=== PATIENT | male | born 1965 | race Caucasian/White ===

== ENCOUNTER 2024-02-12 16:57 | Emergency (ER) | payer MEDICAID ==
--- NOTE | 2024-02-12 17:35 | ERPHSYRPT ---
- History of Present Illness Source: patient, EMS Exam Limitations: clinical condition Patient Subjective Stated Complaint: Pt states "I do not feel well at all." Triage Nursing Assessment: Pt presented alert and oriented X 3, skin pwd. Pt able to speak in clear full sentences. Pt curled up into a position pt able to has nasal canula on with 3 lpm supplimental O2. Fever Severity: moderate Associated Symptoms: abdominal pain, confusion, muscle aches, weakness Hx Tetanus, Diphtheria Vaccination/Date Given: No (unknown) Hx Influenza Vaccination/Date Given: Yes Hx Pneumococcal Vaccination/Date Given: No Immunizations Up to Date: No <ROSHAN LUCIANO - Last Filed: 02/12/24 19:24> <JOSE MASTERS - Last Filed: 02/13/24 05:58> - History of Present Illness Time Seen by Provider: 02/12/24 17:00 Physician History: This is a 58-year-old white male patient who was brought into the emergency department today by the paramedics because of patient stating at approximately 1 to 2 PM he just was not feeling well. Paramedics arrived to the patient's home and took an axillary temperature of 100 F. Patient arrives confused with our measured temperature of 103 F. He has a history of cancer but he could not tell me the primary source. In review of the patient's past medical history listed in the patient's medical record the cancers include bone cancer, liver cancer, bladder cancer, kidney cancer. He also has a history of hypertension, COPD and a stroke in the past. The paramedics provided the patient with Solu- Medrol intravenously and a DuoNeb nebulizer treatment. Patient had a fever, was tachycardic but normotensive when he arrived to the emergency department. He was placed on 3 L oxygen via nasal cannula and the oxygen saturation level is 99%. Patient underwent spinal surgery on 01/15/2024 secondary to spinal abscess. (ROSHAN LUCIANO) Allergies/Adverse Reactions: No Known Drug Allergies Allergy (Unverified 04/02/12 10:18) Home Medications: Albuterol 8 gm Mdi Hfa [Ventolin Hfa MDI] 18 gm IH BID 02/12/24 [History] Apixaban [Eliquis] 5 mg PO BID 02/12/24 [History] Gabapentin 600 mg PO TID 02/12/24 [History] Hydrocodone/Acetaminophen [[place] 10-325 mg] 1 tablet PO QID 02/12/24 [History] Melatonin 9 mg PO HS 02/12/24 [History] Midodrine HCl 5 mg PO TID 02/12/24 [History] Symbicort 1 puff IH BID 02/12/24 [History] Tizanidine HCl 2 mg PO QID 02/12/24 [History] Travel Risk - International Travel Have you traveled outside of the country in past 3 weeks: No - Emerging Infectious Disease Are you exhibiting symptoms associated with any current EIDs: Yes Symptoms: Abdominal Pain, Fever, Headaches/Body Aches/, Joint Pain <ROSHAN LUCIANO - Last Filed: 02/12/24 19:24> - Review of Systems Constitutional: Fever, Weakness Eyes: No Symptoms Ears, Nose, & Throat: No Symptoms Respiratory: No Symptoms Cardiac: No Symptoms Abdominal/Gastrointestinal: Abdominal Pain Genitourinary Symptoms: No Symptoms Musculoskeletal: Arthralgias, Myalgias Skin: No Symptoms Neurological: Other Psychological: No Symptoms (Fusion) Endocrine: No Symptoms Hematologic/Lymphatic: No Symptoms Immunological/Allergic: No Symptoms All Other Systems: Reviewed and Negative <ROSHAN LUCIANO - Last Filed: 02/12/24 19:24> - Past Medical History Pertinent Past Medical History: Yes Neurological History: Stroke ENT History: No Pertinent History Cardiac History: Hypertension Respiratory History: COPD, Emphysema, Lung Cancer Endocrine Medical History: Other Musculoskeletal History: Bone Cancer GI Medical History: Diverticulitis, Liver Cancer History: Bladder Cancer, Kidney Cancer Psycho-Social History: Anxiety Male Reproductive Disorders: No Pertinent History - Past Surgical History Past Surgical History: Yes Other Surgical History: spinal surgery 01/15/2024 Significant Family History: no pertinent family hx - Social History Smoking Status: Current every day smoker How long have you smoked: 30 Exposure to second hand smoke: Yes Alcohol Use: Socially Drug Use: marijuana Patient Lives Alone: No - Social Determinants of Health Will the patient participate in the screening: Declined to provide <ROSHAN LUCIANO - Last Filed: 02/12/24 19:24> - Physical Exam General Appearance: moderate distress, anxiety (Infuse), thin, other Eye Exam: PERRL/EOMI, eyes nml inspection ENT Exam: hearing grossly normal (There is some drainage from the left ear.), airway intact Neck Exam: normal inspection, non-tender, supple, full range of motion Respiratory Exam: normal breath sounds, lungs clear, no respiratory distress, no accessory muscle use, No chest non-tender, No respiratory distress Cardiovascular/Chest Exam: tachycardia Gastrointestinal/Abdominal Exam: soft, guarding (Mild diffuse), abnormal bowel sounds (Reactive) Rectal Exam: not done Extremity Exam: non-tender, normal range of motion, normal inspection, no calf tenderness, no pedal edema, pelvis stable Neurologic Exam: cooperative, confusion, No facial droop, No slurred speech Skin Exam: normal color, warm, dry Lymphatic: No adenopathy SpO2 Interpretation: normal SpO2: 99 O2 Delivery: Nasal Cannula (3 L oxygen) <ROSHAN LUCIANO - Last Filed: 02/12/24 19:24> - Nursing Vital Signs Nursing Vital Signs: Initial Vital Signs Temperature 103.1 F 02/12/24 16:58 Pulse Rate 139 H 02/12/24 16:58 Respiratory Rate 24 02/12/24 16:58 Blood Pressure 154/77 02/12/24 16:58 O2 Sat by Pulse Oximetry 99 02/12/24 16:58 Pain Scale Pain Intensity 8 - Course Nursing assessment & vital signs reviewed: Yes <ROSHAN LUCIANO - Last Filed: 02/12/24 19:24> - CT Exams Head CT Interpretation: Tele-radiologist Report (2.3x0.3.1.3cm pneumoencephalus along convexity L temporal lobe w/o fx liklely related to recent spinal surgery, 1.5cm focus old infarct mid periventricular) Abdomen/Pelvis CT Interpretation: Tele-radiologist Report (bullous emphysema, new small L, tiny R effusion, 1.7x1.3cm R lung nodule probably metastatic. T12/L1 metastatic lytic lesion. T12/L1 laminectomy, moderate diffuse fecal stasis w/ rectal impaction.) <JOSE MASTERS - Last Filed: 02/13/24 05:58> Ordered Tests: Active Orders 24 hr Category Date Time Status IV Insertion STAT Care 02/12/24 17:34 Completed ABDOMEN AND PELVIS W/0 CONTRAS [CT] Stat Exams 02/12/24 18:52 Taken CHEST 1 VIEW (PORTABLE) Stat Exams 02/12/24 17:34 Completed HEAD WITHOUT CONTRAST [CT] Stat Exams 02/12/24 18:52 Taken AMYLASE Stat Lab 02/12/24 18:00 Completed BLOOD CULTURE Stat Lab 02/12/24 18:05 Received CBC W DIFF Stat Lab 02/12/24 18:00 Completed CMP Stat Lab 02/12/24 18:00 Completed LIPASE Stat Lab 02/12/24 18:00 Completed Lactic Acid Stat Lab 02/12/24 17:52 Completed MONO SCREEN Stat Lab 02/12/24 18:10 Completed Manual Differential NC Stat Lab 02/12/24 18:00 Completed UA W/RFX UR CULTURE Stat Lab 02/12/24 22:05 Completed Medication Summary Discontinued Medications Generic Name Dose Route Start Last Admin Trade Name Freq PRN Reason Stop Dose Admin Fentanyl Citrate 50 mcg 02/12/24 19:56 02/12/24 20:18 Fentanyl Citrate 100 Mcg/2 Ml* Vial IV 02/12/24 19:57 50 mcg STAT ONE Administration Fentanyl Citrate Confirm 02/12/24 20:15 Fentanyl Citrate 100 Mcg/2 Ml* Vial Administered 02/12/24 20:16 Dose 100 mcg .ROUTE .STK-MED ONE Sodium Chloride 1,000 mls @ 999 mls/hr 02/12/24 17:34 02/12/24 19:12 Sodium Chloride 0.9% 1000 Ml IV 02/12/24 18:34 Infused .Q1H1M STA Infusion Sodium Chloride Confirm 02/12/24 17:57 Sodium Chloride 0.9% 1000 Ml Administered 02/12/24 17:58 Dose 1,000 mls @ ud .ROUTE .STK-MED ONE Sodium Chloride 1,000 mls @ 999 mls/hr 02/12/24 19:23 02/13/24 00:35 Sodium Chloride 0.9% 1000 Ml IV 02/12/24 20:23 Infused .Q1H1M STA Infusion Vancomycin HCl 2 gm in 400 mls @ 133.333 mls/hr 02/12/24 19:55 02/13/24 00:36 Vancomycin 2 Gram/400 Ml Bag IV 02/12/24 22:54 Infused STAT ONE Infusion Piperacillin Sod/Tazobactam 100 mls @ 200 mls/hr 02/12/24 19:56 02/12/24 20:29 Sod 3.375 gm/ Sodium Chloride IV 02/12/24 20:25 200 mls/hr STAT ONE Administration Sodium Chloride Confirm 02/12/24 20:16 Sodium Chloride 0.9% 1000 Ml Administered 02/12/24 20:17 Dose 1,000 mls @ ud .ROUTE .STK-MED ONE Sodium Chloride Confirm 02/12/24 20:17 Sodium Chloride 100ml Mini-Bag Plus Administered 02/12/24 20:18 Dose 100 mls @ ud IV .STK-MED ONE Vancomycin HCl Confirm 02/12/24 21:15 Vancomycin 2 Gram/400 Ml Bag Administered 02/12/24 21:16 Dose 2 gm in 400 mls @ ud IV .STK-MED ONE Piperacillin Sod/Tazobactam Sod Confirm 02/12/24 20:16 Piperacillin/Tazobactam Sodium 3.375 Gm Vial Administered 02/12/24 20:17 Dose 3.375 gm IV .STK-MED ONE Lab/Rad Data: Laboratory Result Diagrams 02/12/24 18:00 02/12/24 18:00 Laboratory Results 02/12/24 02/12/24 02/12/24 Range/Units 22:05 18:10 18:05 WBC (4.23-9.07) x10^3/uL RBC (4.63-6.08) x10^6/uL Hgb (13.7-17.5) g/dL Hct (40.1-51.0) % MCV (79.0-92.2) fL MCH (25.7-32.2) pg MCHC (32.3-36.5) g/dL RDW (11.6-14.4) % Plt Count (163-337) x10^3/uL MPV (9.4-12.4) fL Segmented Neutrophils (34.0-67.9) % Band Neutrophils (0.0-2.0) % Lymphocytes (Manual) (21.8-53.1) % Monocytes (Manual) (5.3-12.2) % Platelet Estimate (NORMAL) RBC Morphology Anisocytosis Macrocytosis Sodium (135-145) mmol/L Potassium (3.5-5.1) mmol/L Chloride (98-107) mmol/L Carbon Dioxide (22-30) mmol/L Anion Gap (5-15) MEQ/L BUN (9-20) mg/dL Creatinine (0.66-1.25) mg/dL Estimated GFR ML/MIN Glucose (74-106) mg/dL Lactic Acid (0.4-2.0) Calcium (8.4-10.2) mg/dL Total Bilirubin (0.2-1.3) mg/dL AST (17-59) U/L ALT (0-50) U/L Alkaline Phosphatase (38-126) U/L Serum Total Protein (6.3-8.2) g/dL Albumin (3.5-5.0) g/dL Amylase (30-110) U/L Lipase (23-300) U/L Urine Color Yellow (Yellow) Urine Appearance Clear (Clear) Urine pH 7.0 (4.6-8.0) Ur Specific [place] 1.015 (1.005-1.030) Urine Protein Negative (Negative) Urine Glucose (UA) Negative (Negative) mg/dL Urine Ketones Negative (Negative) Urine Blood Negative (Negative) Urine Nitrite Negative (Negative) Urine Bilirubin Negative (Negative) Urine Urobilinogen 0.2 (0.2) mg/dL Ur Leukocyte Esterase Negative (Negative) U Hyaline Cast (Auto) NONE SEEN (0-2) /LPF Urine Microscopic RBC 0-2 (0-5) /HPF Urine Microscopic WBC 0-2 (0-5) /HPF Ur Epithelial Cells None Seen (None Seen) /HPF Urine Bacteria None Seen (None Seen) /HPF Urine Culture Reflexed NO (NO) Monoscreen WEAKLY POSITIVE (NEGATIVE) Influenza Type A Ag NEGATIVE (NEGATIVE) Influenza Type B Ag NEGATIVE (NEGATIVE) RSV (PCR) NEGATIVE (NEGATIVE) SARS-CoV-2 (PCR) NEGATIVE (NEGATIVE) 02/12/24 02/12/24 02/12/24 Range/Units 18:00 18:00 17:52 WBC 16.1 H (4.23-9.07) x10^3/uL RBC 3.36 L (4.63-6.08) x10^6/uL Hgb 10.1 L (13.7-17.5) g/dL Hct 31.2 L (40.1-51.0) % MCV 92.9 H (79.0-92.2) fL MCH 30.1 (25.7-32.2) pg MCHC 32.4 (32.3-36.5) g/dL RDW 14.4 (11.6-14.4) % Plt Count 323 (163-337) x10^3/uL MPV 10.1 (9.4-12.4) fL Segmented Neutrophils 95 H (34.0-67.9) % Band Neutrophils 1 (0.0-2.0) % Lymphocytes (Manual) 2 L (21.8-53.1) % Monocytes (Manual) 2 L (5.3-12.2) % Platelet Estimate NORMAL (NORMAL) RBC Morphology ABNORMAL Anisocytosis 1+ Macrocytosis 1+ Sodium 134 L (135-145) mmol/L Potassium 3.9 (3.5-5.1) mmol/L Chloride 100 (98-107) mmol/L Carbon Dioxide 24 (22-30) mmol/L Anion Gap 14.6 (5-15) MEQ/L BUN 22 H (9-20) mg/dL Creatinine 0.72 (0.66-1.25) mg/dL Estimated GFR 105.2 ML/MIN Glucose 139 H (74-106) mg/dL Lactic Acid 1.6 (0.4-2.0) Calcium 10.4 H (8.4-10.2) mg/dL Total Bilirubin 0.60 (0.2-1.3) mg/dL AST 31 (17-59) U/L ALT 21 (0-50) U/L Alkaline Phosphatase 89 (38-126) U/L Serum Total Protein 7.6 (6.3-8.2) g/dL Albumin 4.1 (3.5-5.0) g/dL Amylase 53 (30-110) U/L Lipase 20 L (23-300) U/L Urine Color (Yellow) Urine Appearance (Clear) Urine pH (4.6-8.0) Ur Specific [place] (1.005-1.030) Urine Protein (Negative) Urine Glucose (UA) (Negative) mg/dL Urine Ketones (Negative) Urine Blood (Negative) Urine Nitrite (Negative) Urine Bilirubin (Negative) Urine Urobilinogen (0.2) mg/dL Ur Leukocyte Esterase (Negative) U Hyaline Cast (Auto) (0-2) /LPF Urine Microscopic RBC (0-5) /HPF Urine Microscopic WBC (0-5) /HPF Ur Epithelial Cells (None Seen) /HPF Urine Bacteria (None Seen) /HPF Urine Culture Reflexed (NO) Monoscreen (NEGATIVE) Influenza Type A Ag (NEGATIVE) Influenza Type B Ag (NEGATIVE) RSV (PCR) (NEGATIVE) SARS-CoV-2 (PCR) (NEGATIVE) <ROSHAN LUCIANO - Last Filed: 02/12/24 19:24> - Progress Progress: unchanged Counseled pt/family regarding: lab results, diagnosis, need for follow-up, rad results <JOSE MASTERS - Last Filed: 02/13/24 05:58> - Progress Progress Note: 02/12/24 19:30 My medical decision making of the assignment of high complexity of this pa tienikolas's medical issue today is based on review of the patient's past medical history, review of patient medication list, reviewed patient drug allergy list, history present illness and physical findings on examination. The workup in this patient includes placement of intravenous line, infusion of normal saline solution, CBC, CMP, blood cultures, lactic acid level, urinalysis, viral swabs, monotest, chest x-ray, CT scan of the head and CT scan of the abdomen pelvis without contrast. Differential (ROSHAN LUCIANO) Assumed care at [address] Luciano. Patient in sepsis at this time. 2L IVF given, started on Vanc/Zosyn. 50mcg Fentenyl given for pain control. Discussed transfer to [facility] where his surgeon is with patient and at bedside. They were agreeable for transfer. Spoke with Dr. Olvera at 2135 who accepted transfer to their facility. (JOSE MASTERS) Medical Desision Making - Discussion of managment Care discussed with:: hospitalist Reviewed:: Test results, Need for additional workup Agreed on:: Treatment plan Will see patient: in hospital - Diagnostic Testing Diagnostic test were ordered, analyzed, and reviewed by me: Yes Radiological Interpretation: Interpreted by me, Reviewed by me, Teleradiologist Report - Risk of complications The pt has a mod risk of morbidity or mortality based on: Need for prescription drug management The pt has a high risk of morbidity or mortality based on: Decision regarding hospitilization or escalation of hosp level of care <JOSE MASTERS - Last Filed: 02/13/24 05:58> <ROSHAN LUCIANO - Last Filed: 02/12/24 19:24> - Departure Departure Disposition: Transfer ([facility]) Critical Care Time: No <JOSE MASTERS - Last Filed: 02/13/24 05:58> - Departure Clinical Impression: Sepsis, Metastatic cancer, AMS (altered mental status), Intractable pain, Recent major surgery Condition: Serious Referrals: CAESAR ISLAS [ACTIVE STAFF] - Follow up/PCP as directed Instructions: Fever, Adult (DC)
[2024-02-12] MEDS ORDERED: Sodium Chloride 0.9% 1000 ML 1,000 ML ONE ×2 (17:57→20:16)
[2024-02-12] MEDS: Sodium Chloride 0.9% 1000 ML 1,000 ML IV STA ×2 (18:06→20:27)
[2024-02-12 18:15] LABS: Hematocrit 31.2 % (40.1-51.0); Hemoglobin 10.1 g/dL (13.7-17.5); Mean Cell Volume 92.9 fL (79.0-92.2); Mean Corpuscular Hemoglobin 30.1 pg (25.7-32.2); Mean Corpuscular Hgb Concent. 32.4 g/dL (32.3-36.5); Mean Platelet Volume 10.1 fL (9.4-12.4); Platelet Count 323 x10^3/uL (163-337); Red Blood Count 3.36 x10^6/uL (4.63-6.08); Red Cell Distribution Width 14.4 % (11.6-14.4); White Blood Count 16.1 x10^3/uL (4.23-9.07)
[2024-02-12 18:26] LABS: ALBUMIN 4.1 g/dL (3.5-5.0); ANION GAP 14.6 MEQ/L (5-15); BILIRUBIN,TOTAL 0.6 mg/dL (0.2-1.3); Calcium 10.4 mg/dL (8.4-10.2); Creatinine 1 0.72 mg/dL (0.66-1.25); EST GLOMERULAR FILTRATION RATE 105.2 ML/MIN; Potassium 3.9 mmol/L (3.5-5.1); Total Protein 7.6 g/dL (6.3-8.2)
[2024-02-12 18:48] LABS: ANISOCYTOSIS 1+; BAND 1 % (0.0-2.0); Lymphocytes 2 % (21.8-53.1); Macrocytosis 1+; Monocyte 2 % (5.3-12.2); Neutrophils 95 % (34.0-67.9); Platelet Estimate NORMAL (NORMAL); Total Cells Counted 100
[2024-02-12 18:52] LABS: INFLUENZA A NEGATIVE (NEGATIVE); INFLUENZA B NEGATIVE (NEGATIVE); RESPIRATORY SYNCTIAL VIRUS NEGATIVE (NEGATIVE); SARS-CoV-2 Xpert Express NEGATIVE (NEGATIVE)
[2024-02-12] MEDS ORDERED: SUBLIMAZE 100 MCG/2 ML ONE (20:15)
[2024-02-12] MEDS ORDERED: PIPERACILLIN/TAZOBACTAM IV ONE (20:16)
[2024-02-12] MEDS ORDERED: Sodium Chloride 100ML MINI-BAG PLUS 100 ML IV ONE (20:17)
[2024-02-12] MEDS: SUBLIMAZE 100 MCG/2 ML IV ONE (20:18)
[2024-02-12] MEDS: PIPERACILLIN/TAZOBACTAM 3.375 GM in Sodium Chloride 100ML MINI-BAG PLUS 100 ML IV ONE (20:29)
[2024-02-12] MEDS ORDERED: VANCOMYCIN 2 GRAM/400 ML BAG 2 GM/400 ML PIGGYBACK IV ONE (21:15)
[2024-02-12] MEDS: VANCOMYCIN 2 GRAM/400 ML BAG 2 GM/400 ML PIGGYBACK IV ONE (21:17)
--- NOTE | 2024-02-12 21:26 | XRAY ---
Indication: Fever. Comparison: December 18, 2023 Portable chest again demonstrates bullous pulmonary emphysema with a few incidental tiny calcific granulomas. New left infrahilar infiltrate/atelectasis with small effusion. Heart not enlarged. Bony thorax intact again with osteopenia and mild degenerative changes.
[2024-02-12 22:23] LABS: Appearance Clear (Clear); Bacteria None Seen /HPF (None Seen); Bilirubin Negative (Negative); Blood Negative (Negative); Epithelial Cells None Seen /HPF (None Seen); Glucose, Urine Negative (Negative); Hyaline Casts NONE SEEN /LPF (0-2); Ketones Negative (Negative); Leukocyte Esterase Negative (Negative); Nitrite Negative (Negative); Protein,Urine Dip Negative (Negative); RBC 0-2 /HPF (0-5); Specific Gravity 1.015 (1.005-1.030); Urobilinogen 0.2 mg/dL (0.2); WBC 0-2 /HPF (0-5)
[2024-02-13 00:18] VITALS: TEMP 99.9
[2024-02-13 02:17] VITALS: BP 139/73; PULSE 85; RESP 19; O2SAT 95
--- NOTE | 2024-02-13 08:17 | XRAY ---
Indication: Confusion. Fever. History liver/bladder/kidney/bone cancer. Status post spinal surgery January 15, 2024. Multiple contiguous axial images obtained through the head without contrast. Comparison: None Age-appropriate global atrophy and minimal periventricular degenerative micro-ischemia. Left mid periventricular white matter demonstrates 1.5 cm round focus of old infarct. Left temporal convexity demonstrates tiny focus of pneumocephalus measuring 2.3 x 0.3 x 1.3 cm. Smaller petechial pneumocephalus seen more inferiorly. No acute fracture or acute intracranial hemorrhage. Pneumocephalus present around related to recent surgery. Fourth ventricle is midline without hydrocephalus. Partial opacification left middle ear and left mastoid air cells presumed inflammatory. Bone windows reveal subtle left calvarial lytic lesions, possible osteolytic metastasis. Visualized paranasal sinuses are clear. Impression: 1. Small foci pneumocephalus along left temporal convexity without fracture or acute intracranial hemorrhage. Finding presumably related to patient's recent surgery. Gas-forming infection not completely excluded in right clinical setting. 2. Atrophy and degenerative micro-ischemia within normal limits. Small focus old infarct left periventricular white matter. 3. Partial opacification left middle ear and mastoid air cells. Rule out chronic otitis media.
--- NOTE | 2024-02-13 08:35 | XRAY ---
Indication: Abdominal pain. Fever. History liver/bladder/kidney/bone cancer. Status post spinal surgery January 15, 2024. Multiple contiguous axial images obtained through the abdomen and pelvis without contrast. Comparison: April 02, 2012 Lung bases again demonstrates bullous pulmonary emphysema. New small left/tiny right pleural effusions with compressive atelectasis. Also new right middle and right lower lobe irregular noncalcified nodules concerning for metastasis. Largest is right lower lobe measuring 1.7 x 1.9 cm. A few incidental tiny right lower lobe calcified granulomas. Heart not enlarged. Noncontrasted stomach and bowel loops appear nonobstructed. Normal appendix. There is now moderate diffuse scatter colonic fecal debris with moderate rectal fecal impaction. No free fluid/air. Left upper renal exophytic mass appears smaller and more dense measuring at least 3.7 x 2.7 x 2.6 cm. Lack of IV contrast precludes further characterization. Right kidney demonstrates 2 cm upper pole cortical cyst, previously 1.2 cm. Also new 2.5 cm right upper renal exophytic cyst. Remaining liver, gallbladder, pancreas, spleen, adrenal glands, and bladder are unremarkable for noncontrast exam. Progressive worsening moderate scattered arteriosclerotic calcifications including both renal arteries. No AAA. Osseous structures demonstrates new T10-L3 fusion with beam artifact from bilateral posterior fusion hardware. Also new T12-L1 laminectomy. T12/L1 vertebral bodies demonstrates new lytic lesions with cortical erosions favoring metastasis. Suspect additional smaller osteolytic metastasis throughout visualized spine including right pubic symphysis. Impression: 1. New beam artifact from thoracolumbar fusion hardware. Also new T12-L1 laminectomy 2. New small left/tiny right effusions of uncertain etiology. 3. New right lung noncalcified nodules worrisome for metastasis. New osteolytic metastasis as detailed. 4. Left upper renal exophytic mass appears smaller and more dense. Lack of IV contrast precludes further characterization. Rule out malignancy. 5. Moderate diffuse fecal stasis with rectal fecal impaction. 6. Chronic findings including bullous pulmonary emphysema, right renal cysts, and arteriosclerotic disease.
== END 2024-02-13 02:45 | disposition short-term general hospital (02) ==
LOC: ED 16:57
DX: A41.9 Sepsis, unspecified organism (principal); R41.82 Altered mental status, unspecified; R52 Pain, unspecified; C79.51 Secondary malignant neoplasm of bone; C78.7 Secondary malignant neoplasm of liver and intrahepatic bile duct; C79.11 Secondary malignant neoplasm of bladder; C79.00 Secondary malignant neoplasm of unspecified kidney and renal pelvis; Z98.890 Other specified postprocedural states; Z79.899 Other long term (current) drug therapy; Z79.01 Long term (current) use of anticoagulants
CPT/HCPCS: 0241U; 36415; 70450; 71045; 74176; 80053; 81001; 82150; 83605; 83690; 85025; 86308; 87040; 96360; 96361; 96374; 99285; 87077; 96365; 96366; J3010; J3370